=== PATIENT | female | born 1940 | race Caucasian/White ===

== ENCOUNTER → 2016-09-13 | Day surgery (SDC) | payer MEDICARE, BC ==
[~2016-09-13] VITALS: Ht 165.1 cm; Wt 80.3 kg
[~2016-09-13] MED LIST: SYMBICORT 16010.2 GM INH; XANAX0.25 MG PO
--- NOTE | ~2016-09-13 | OR ---
PATIENT'S NAME: KRUNAL DE PAZ [facility] AGE: 76 Y [address] 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 PROCEDURE PERFORMED: 1. Direct laryngoscopy and biopsy of the right true vocal cord. 2. Marsupialization of the vallecular cyst. ANESTHESIA: General endotracheal anesthesia. BLOOD LOSS: Less than 5 mL. SPECIMEN: Right true vocal cord lesion and vallecular lesion. INDICATION: Krunal De Paz is a 76-year-old female, who presented to our clinic with throat irritation. On flexible laryngoscopy, she was noted to have a vallecular cyst as well as a right true vocal cord mass. In the setting of smoking, we recommended a direct laryngoscopy and biopsy. PROCEDURE DETAILS: The patient was seen in the preoperative holding area. Informed written consent was obtained from the patient for direct laryngoscopy and biopsy. After full knowledge of risks, benefits, and alternatives the patient wished to proceed to the operating room. The patient was taken to the OR, placed on the operating room table. General endotracheal anesthesia was induced without any difficulty. A time-out was performed identifying the patient as well as the procedure to be performed. All pressure points were padded and sequential compression stockings were placed. We used a Dedo laryngoscope for this examination. The scope was placed in the right piriform sinus and so withdrawn to examine the surfaces of the right piriform, right lateral oropharyngeal wall, and tonsillar area. In similar fashion, the scope was placed into the left piriform sinus and slowly PATIENT'S NAME: KRUNAL DE PAZ [facility] AGE: 76 Y [address] ROOM: [place] [address] LOCATION: [facility] [place] ADMIT DATE: 09/13/2016 OR/Procedure Report DISCHARGE DATE: FAMILY PHYSICIAN: Cassandra Montana MD ATTENDING PHYSICIAN: Angel Barnett. We then examined the base of tongue from right to left. She had lateral lymphoid hypertrophy but no suspicious appearing lesions along the lateral aspect of the base of tongue. In the vallecular, there was a cyst sitting there. We then exposed the larynx and placed the patient into suspension. There was an area of leukoplakia along the mid membranous vocal cord on the right side. This was grasped with a cup forceps and excised using sharp dissection. This was passed off for permanent pathology. We then again exposed the vallecular cyst. We grasped this with a forceps and then sharply dissected around the lesion until it was excised. This was passed off for permanent pathology as well. There was some bleeding in the base of the tongue which was taken care of with electrocautery. This marked the conclusion of the procedure. All instrumentation was removed from the patient and all sponge and needle counts were correct x2. The patient was passed back to Anesthesia where she was extubated without difficulty and transported to the PACU in stable condition. NATE HEWITT MD-STUDENT FOR ANGEL BARNETT MD JY/modl /[id number] d: 09/13/16 1841 t: 10/04/16 0957, OPERATIVE SUMMARY
== END | disposition disaster alternative care site (69) ==
LOC: GPOC 09-06 11:00 → GSDC 06:29 → GPOC 07:00
PROC: 0CBT8ZX Excision of Right Vocal Cord, Via Natural or Artificial Opening Endoscopic, Diagnostic (ICD-10-PCS; principal; 2016-09-13)
PROC: 0CBS8ZZ Excision of Larynx, Via Natural or Artificial Opening Endoscopic (ICD-10-PCS; 2016-09-13)
DX: J38.3 Other diseases of vocal cords (principal); J38.7 Other diseases of larynx; L83 Acanthosis nigricans; M19.90 Unspecified osteoarthritis, unspecified site; F41.9 Anxiety disorder, unspecified; Z90.49 Acquired absence of other specified parts of digestive tract; Z98.890 Other specified postprocedural states; Z79.899 Other long term (current) drug therapy
CPT/HCPCS: J0171; J1100; J2001; J2405; J3010; J7120